=== PATIENT | female | born 1955 | race Caucasian/White ===

== ENCOUNTER 2018-03-08 12:26 | Inpatient (IN) ==
[2018-03-08] MEDS ORDERED: Mag Hydrox/Al Hydrox/Simeth 30 ML UDC PO PRN (16:05)
[2018-03-08] MEDS ORDERED: tiZANidine 4 MG TABLET PO PRN (16:25)
[2018-03-08] MEDS ORDERED: [UNRECOGNIZED DRUG - REMARK] PO PRN (16:34)
[2018-03-08] MEDS ORDERED: Patient Taking Own Medication 1 EACH PO PRN (16:37)
[2018-03-08] MEDS: *HR* OxyCODONE Immed Rel 5 MG TABLET PO PRN ×2 (17:02→19:54)
[2018-03-08] MEDS: Acetaminophen 325 MG TABLET PO PRN (18:39)
[2018-03-08] MEDS: tiZANidine 4 MG TABLET PO PRN (21:43)
[2018-03-09] MEDS: *HR* OxyCODONE Immed Rel 5 MG TABLET PO PRN ×5 (01:54→20:36)
[2018-03-09] MEDS: Acetaminophen 325 MG TABLET PO PRN ×2 (06:19→23:39)
[2018-03-09 06:58] LABS: Basophils % 0.2 %; Eosinophils # 0.5 K/mcL (0.0-0.6); Eosinophils % 4.2 %; Hematocrit 32.7 % (35.3-44.9); Immature Granulocytes % 0.3 % (0-4); Lymphocytes # 2.2 K/mcL (0.6-4.6); Lymphocytes % 17.9 %; Mean Corpuscular HGB Conc 33.6 g/dL (31.6-35.5); Mean Corpuscular Hemoglobin 31.3 pg (28.0-33.3); Mean Corpuscular Volume 92.9 fL (83.0-100.0); Mean Platelet Volume 10.3 fL (9.4-12.4); Monocytes % 8.4 %; Platelet Count 251 K/mcL (140-400); Red Blood Count 3.52 M/mcL (3.82-4.97); Red Cell Distribution Width 13.9 % (11.5-14.5)
[2018-03-09 06:59] LABS: INR 1.2; Prothrombin Time 13.7 Seconds (9.4-12.1)
[2018-03-09 07:02] LABS: Activated Partial Thrombo Time 28.4 Seconds (26.0-36.0)
[2018-03-09 07:03] LABS: Neutrophils # 8.4 K/mcL (1.6-8.9)
[2018-03-09 07:11] LABS: BUN/Creatinine Ratio 11 (6-26); Blood Urea Nitrogen 12 mg/dL (8-23); Carbon Dioxide 28 mEq/L (23-29); Chloride 99 mEq/L (98-107); Glucose 103 mg/dL (70-105); Osmolality,Calculated 278 (280-300); Potassium 3.9 mEq/L (3.5-5.1); Sodium 134 mEq/L (136-145); eGFR For Non-African Americans 53 (> 60)
[2018-03-09] MEDS ORDERED: hydroCHLOROthiazide 25 MG TABLET PO SCH ×2 (09:00→21:00)
[2018-03-09] MEDS ORDERED: Valsartan 80 MG TABLET PO SCH (09:00)
[2018-03-09] MEDS: Multivit/Ca/Min/Fe/FA 1 TAB TABLET PO SCH (09:06)
[2018-03-09] MEDS: Cholecalciferol (D-3) 1,000 UNIT TABLET PO SCH (09:06)
[2018-03-09] MEDS: Ascorbic Acid 500 MG TABLET PO SCH (09:06)
[2018-03-09] MEDS: Aspirin 81 MG TAB.CHEW PO SCH (09:06)
[2018-03-09] MEDS: LUTEIN PO SCH (09:09)
[2018-03-09] MEDS: KRILL OIL 500 MG PO SCH (09:09)
--- NOTE | 2018-03-09 10:44 | Internal Med History&Physical ---
Date of Encounter: 03/09/18 Time of Encounter: 10:41 Assessment and Plan (1) S/P total knee replacement Current visit: Yes Status: Acute Patient is a new admission from [facility] where she had a total knee replacement on 02/03/2018. Recovery was uneventful. Patient is here for rehabilitation due to deconditioning. Patient is well-controlled to right knee. Right knee surgical incision appears healthy, although knee appears somewhat swollen. Continuous icing and use. We will continue with current plan of care. Patient continues physical therapy which she states is progressing well. Qualifiers: Laterality: right Qualified Code(s): Z96.651 - Presence of right artificial knee joint (2) HTN (hypertension) Current visit: Yes Status: Chronic Vital signs are stable. We will continue with current medications. Patient had had a complain of dizziness after fluid to a standing position this morning , which subsided fairly quickly. Patient denied any palpitations or chest discomforts. Orthostatic vital signs were obtained which were negative. Qualifiers: Hypertension type: essential hypertension Qualified Code(s): I10 - Essential (primary) hypertension (3) Dizziness Current visit: Yes Status: Acute Patient experienced dizziness when repositioning to a standing position this morning. Patient states that her symptoms subsided after a few's. Denied any palpitations or chest discomforts. Denied any other syncopal type symptoms. Orthostatic vital signs were obtained which were negative. Labs were reviewed which showed no acute issues. We will continue to monitor. We will review patient's current hypertension meds (4) GERD (gastroesophageal reflux disease) Current visit: Yes Status: Chronic No acute issues. Patient denies any reflux. We will continue with current medications. Qualifiers: Esophagitis presence: without esophagitis Qualified Code(s): K21.9 - Gastro -esophageal reflux disease without esophagitis Internal Medicine - H&P: HPI Chief complaint: right total knee replacement Admitted From: Hospital to Hospital Transfer Plans for Post Hospital Care: Home History of present illness: Ms. Osorio is a 62 year old female who had a right total knee replacement performed at a [facility]. Patient's surgical recovery at Hospital was uneventful and patient was transferred to this facility for further rehabilitation due to deconditioning secondary to her right total knee replacement. Patient also has a history of CVA, left hip fracture with ORIF, migraines, hypertension, vertebral artery coiling, and urinary incontinence. Patient currently states that her right knee pain has been tolerable with current medications. Patient has been using continuous icing machine to the right knee which appears slightly swollen with a midline surgical incision that appears healthy and intact. Minimal amount of ecchymosis noted surrounding the incision and no drainage noted to dressing. Patient denies any other discomforts or shortness of breath. Patient states that she is already began physical therapy and that is progressing well. Patient complaint of slight dizziness when standing from a lying position this morning. Orthostatic vital signs were obtained which were negative. Patient denied any palpitations or syncopal symptoms. Patient also states that she has had several occasions during which she feels that she has a fever, but these occasions tend last only for several minutes. Patient states she becomes slightly diaphoretic during these episodes and has chills. Denies any other symptoms such as dysuria or productive cough. WBC has been normal. Past Med Surg Social Fam HX - Past Medical History Medical history: arthritis, CVA, GERD, hypertension, migraine, other Additional medical history: cerebal sugery with CVA 2004 - Past Surgical History Surgical History: cholecystectomy, knee replacement Additional surgical history: hip surgery [facility] - Social History Smoking Status: Never smoker Smokeless Tobacco Status: No Alcohol use: none Drug use: none Internal Medicine - H&P: Meds Amitriptyline 12/05/16 [History] Azithromycin [Azithromycin 6-Tab Pack] 250 mg PO PER PKG DI #6 tab 12/05/16 [Rx] Diovan 12/05/16 [History] GuaiFENesin/Codeine [Robitussin w/Codeine] 5 ml PO Q6HR PRN #120 liquid [Rx] Loratadine [Allergy Relief] 10 mg PO DAILY #30 tablet 12/05/16 [Rx] Plavix 12/05/16 [History] Wellbutrin 12/05/16 [History] Zomig 12/05/16 [History] Nitrofurantoin Monohyd/M-Cryst [Macrobid 100 mg Capsule] 100 mg PO BID #14 capsule 12/10/16 [Rx] Phenazopyridine HCl [Pyridium] 200 mg PO TID #6 tab 12/10/16 [Rx] 3 Allergy/AdvReac Type Severity Reaction Status Date / Time lisinopril Allergy Cough Verified 03/08/18 17:04 prednisone AdvReac Hypertensio Verified 06/24/16 09:44 n All Systems PM: A 10-system review of systems was performed and is negative for pertinent findings except as documented above in the HPI. - Constitutional Constitutional: as per HPI, no chills, no fever(s), no night sweats - EENT Eyes: no change in vision, no discharge, no pain, no photophobia Ears: no ear discharge, no ear pain, no tinnitus Nose, mouth and throat: no dysphagia, no nasal discharge, no neck pain, no sore throat - Cardiovascular Cardiovascular ROS IM: as per HPI, no chest pain, no diaphoresis, no dyspnea, no lightheadedness, no palpitations, no syncope - Respiratory Respiratory: as per HPI, no cough, no dyspnea, no wheezing, no excessive phlegm production - Gastrointestinal Gastrointestinal: no abdominal pain, no diarrhea, no hematemesis, no hematochezia, no melena, no nausea, no vomiting - Genitourinary Genitourinary: no change in urinary stream, no dysuria, no flank pain, no hematuria - Musculoskeletal Musculoskeletal ROS IM: as per HPI, no numbness, no tingling - Integumentary Integumentary IM: no rash, no unusual bruising - Neurological Neurological ROS: no confusion, no convulsions, no focal weakness, no numbness, no tingling, no tremor(s) - Hematologic/Lymphatic Hematologic/Lymphatic: no easy bruising - Constitutional Vitals: Temp Pulse Resp BP Pulse Ox 100.7 F H 84 16 108/69 95 03/09/18 06:10 03/09/18 06:10 03/09/18 06:10 03/09/18 09:07 03/09/18 06:10 General appearance: Present: A&O X 3, pleasant - Head Head exam: Present: atraumatic, normocephalic - Eye Eye exam: Present: PERRL, conjuntiva pink, sclera anicteric Pupils: Present: PERRL - Neck Neck exam general surgery: Present: supple, trachea midline. Absent: lymphadenopathy - Respiratory Respiratory exam: Present: CTAB. Absent: accessory muscle use, rales, rhonchi, wheezes - Cardiovascular Cardiovascular exam: Present: RRR, +S1, +S2. Absent: diastolic murmur, gallop, rubs, systolic murmur - GI/Abdominal GI/Abdominal exam: Present: normal bowel sounds, soft, no peritoneal signs. Absent: distended, tenderness - Extremities Exam Extremities exam: Present: warm, radial pulses palpable and symmetrical. Absent : calf tenderness, cyanotic, pedal edema Additional comments: Right knee appears somewhat swollen with a midline surgical incision that appears dry and intact. Minimal amount of ecchymosis noted. No drainage noted. Continues icing the knees. - Neurological Exam Neurological exam: Present: CN II-XII intact, oriented X3, no focal deficits. Absent: pronater drift, facial droop, speech deficit - Skin Skin exam: Present: dry, intact Internal Med - H&P Results - Labs CBC & Chem 7: 03/09/18 06:10 03/09/18 06:10 Labs: Short CBC 03/09/18 Range/Units 06:10 WBC 12.1 H (4.3-11.1) K/mcL Hgb 11.0 L (11.5-15.4) g/dL Hct 32.7 L (35.3-44.9) % Plt Count 251 (140-400) K/mcL Neutrophils # 8.4 (1.6-8.9) K/mcL BMP 03/09/18 06:10 Sodium 134 L Potassium 3.9 Chloride 99 Carbon Dioxide 28 BUN 12 Creatinine 1.06 Glucose 103 Calcium 9.0 - VTE Documentation of Mechanical Device: Graduated compression elastic hosiery
[2018-03-09] MEDS: *HR* Enoxaparin 40 MG/0.4 ML SYRINGE SQ SCH (15:34)
[2018-03-09] MEDS: Valsartan 80 MG TABLET PO SCH (22:50)
[2018-03-10] MEDS: *HR* OxyCODONE Immed Rel 5 MG TABLET PO PRN ×5 (05:24→22:08)
[2018-03-10 06:29] LABS: INR 1.1; Prothrombin Time 12.8 Seconds (9.4-12.1)
[2018-03-10 06:30] LABS: Basophils % 0.2 %; Eosinophils # 0.6 K/mcL (0.0-0.6); Eosinophils % 5.3 %; Hematocrit 31.6 % (35.3-44.9); Hemoglobin 10.5 g/dL (11.5-15.4); Immature Granulocytes % 0.6 % (0-4); Lymphocytes # 2.7 K/mcL (0.6-4.6); Lymphocytes % 25.3 %; Mean Corpuscular HGB Conc 33.2 g/dL (31.6-35.5); Mean Corpuscular Hemoglobin 30.9 pg (28.0-33.3); Mean Corpuscular Volume 92.9 fL (83.0-100.0); Mean Platelet Volume 10.1 fL (9.4-12.4); Monocytes # 0.9 K/mcL (0.0-1.3); Neutrophils # 6.5 K/mcL (1.6-8.9); Platelet Count 286 K/mcL (140-400); Red Cell Distribution Width 13.8 % (11.5-14.5); Segmented Neutrophils % 60.6 %
[2018-03-10] MEDS: Ascorbic Acid 500 MG TABLET PO SCH (09:39)
[2018-03-10] MEDS: Cholecalciferol (D-3) 1,000 UNIT TABLET PO SCH (09:39)
[2018-03-10] MEDS: Multivit/Ca/Min/Fe/FA 1 TAB TABLET PO SCH (09:39)
[2018-03-10] MEDS: Aspirin 81 MG TAB.CHEW PO SCH (09:39)
[2018-03-10] MEDS: LUTEIN PO SCH (09:40)
[2018-03-10] MEDS: Valsartan 80 MG TABLET PO SCH (09:40)
[2018-03-10] MEDS: *HR* Enoxaparin 40 MG/0.4 ML SYRINGE SQ SCH (09:40)
[2018-03-10] MEDS: KRILL OIL 500 MG PO SCH (09:40)
--- NOTE | 2018-03-10 14:37 | Internal Med Progress Note ---
Date of Encounter: 03/10/18 Time of Encounter: 10:45 - Assessment and plan (1) S/P total knee replacement Current Visit: Yes Status: Acute Assessment and plan: Patient looks good, postop. We discussed the use of iron and aspirin for a a while postop. We will follow her hemoglobin and use fractionated heparin for DVT prophylaxis. No signs of cellulitis, joint infection, etc. Nursing approached me this afternoon and was concerned about her drainage so will follow. Qualifiers: Laterality: right Qualified Code(s): Z96.651 - Presence of right artificial knee joint (2) HTN (hypertension) Current Visit: Yes Status: Chronic Assessment and plan: We will follow. She has been hypotensive and I am not sure why there is been confusion about her home medications. Patient states that she uses Diovan 80 mg daily, only, for her blood pressure at home. She will be on this and will follow blood pressure. Qualifiers: Hypertension type: essential hypertension Qualified Code(s): I10 - Essential (primary) hypertension (3) GERD (gastroesophageal reflux disease) Current Visit: Yes Status: Chronic Assessment and plan: She is clinically stable without symptoms. Qualifiers: Esophagitis presence: without esophagitis Qualified Code(s): K21.9 - Gastro -esophageal reflux disease without esophagitis (4) Constipation Current Visit: Yes Status: Acute Assessment and plan: We will encouraged laxative use, as above. Qualifiers: Constipation type: slow transit constipation Qualified Code(s): K59.01 - Slow transit constipation - Subjective Interval history: Patient is feeling much better. She states that she still has not had a bowel movement that she is using prune juice. Again, I encouraged laxative use. Patient has no complaint of chest discomfort, dyspnea, orthopnea, palpitations, nausea or vomiting, constipation or diarrhea, other changes in bowel habits, difficulty with urination, rash or itching, or other new complaints, except as mentioned above. Review of systems is otherwise negative. I discussed management of her care with nursing staff. - Constitutional Vitals: Temp Pulse Resp BP Pulse Ox 97.5 F L 76 16 98/63 98 03/10/18 06:48 03/10/18 06:48 03/10/18 06:48 03/10/18 06:48 03/10/18 06:48 General appearance: Present: pleasant Exam: Examination: (Except as mentioned above): General: In no apparent distress. Alert and oriented 3. Nondiaphoretic. Head: Atraumatic and normocephalic. Respiratory: No use of accessory muscles. Lungs are clear throughout. Normal airflow. Cardiovascular: Regular rate and rhythm without murmur appreciated. Abdomen: Bowel sounds are normal. No hepatosplenomegaly mass or tenderness appreciated. Obese and therefore difficult to palpate deeply. Extremities: No cyanosis clubbing or change in edema. Skin: Warm and non-diaphoretic with no new lesions noted. Internal Medicine: Result - Labs CBC & Chem 7: 03/10/18 05:20 03/09/18 06:10 Labs: Short CBC 03/10/18 Range/Units 05:20 WBC 10.7 (4.3-11.1) K/mcL Hgb 10.5 L (11.5-15.4) g/dL Hct 31.6 L (35.3-44.9) % Plt Count 286 (140-400) K/mcL Neutrophils # 6.5 (1.6-8.9) K/mcL - ABG Interpretation ABG results: PT/INR, D-dimer PT 12.8 Seconds (9.4-12.1) H 03/10/18 05:20 - VTE Documentation of Mechanical Device: Graduated compression elastic hosiery Consult Discharge Plan - Plan Referrals: Rodolfo Garcia MD [Primary Care Provider] -
[2018-03-10] MEDS: tiZANidine 4 MG TABLET PO PRN (20:34)
[2018-03-10] MEDS: Acetaminophen 325 MG TABLET PO PRN (20:34)
[2018-03-11] MEDS: *HR* OxyCODONE Immed Rel 5 MG TABLET PO PRN ×5 (04:53→21:57)
[2018-03-11] MEDS: Aspirin 81 MG TAB.CHEW PO SCH (09:14)
[2018-03-11] MEDS: Cholecalciferol (D-3) 1,000 UNIT TABLET PO SCH (09:15)
[2018-03-11] MEDS: LUTEIN PO SCH (09:15)
[2018-03-11] MEDS: Ascorbic Acid 500 MG TABLET PO SCH (09:15)
[2018-03-11] MEDS: Multivit/Ca/Min/Fe/FA 1 TAB TABLET PO SCH (09:15)
[2018-03-11] MEDS: Valsartan 80 MG TABLET PO SCH (09:15)
[2018-03-11] MEDS: *HR* Enoxaparin 40 MG/0.4 ML SYRINGE SQ SCH (09:15)
[2018-03-11] MEDS: KRILL OIL 500 MG PO SCH (10:08)
[2018-03-11] MEDS: Acetaminophen 325 MG TABLET PO PRN ×3 (11:14→19:36)
--- NOTE | 2018-03-11 13:00 | Internal Med Progress Note ---
Date of Encounter: 03/11/18 Time of Encounter: 12:58 - Assessment and plan (1) S/P total knee replacement Current Visit: Yes Status: Acute Assessment and plan: Right knee remains wtih moderate swelling and mod drainage noted lower portion of surgical wound but otherwise appears healthy and intact at the incision. No erythema noted. Patient continues use of CPM machine and continuous icing. Patient observed ambulating in hallway with walker. Pain has been managed well with current oral medications. We will continue with physical therapy and current plan of care. Qualifiers: Laterality: right Qualified Code(s): Z96.651 - Presence of right artificial knee joint (2) HTN (hypertension) Current Visit: Yes Status: Chronic Assessment and plan: Vital signs stable. We will continue with current medications. Qualifiers: Hypertension type: essential hypertension Qualified Code(s): I10 - Essential (primary) hypertension (3) GERD (gastroesophageal reflux disease) Current Visit: Yes Status: Chronic Assessment and plan: No acute issues. No reported recent reflux. We will continue with current medications Qualifiers: Esophagitis presence: without esophagitis Qualified Code(s): K21.9 - Gastro -esophageal reflux disease without esophagitis - Time Spent With Patient less than 15 minutes - Subjective Interval history: Patient appears relaxed and currently denies any discomforts shortness of breath. Patient states that her pain has been tolerable with current pain medications and that her right knee has improved since starting a CPM machine 2 days ago. She reports that patient has had minimal amount of serosanguineous type drainage from the distal portion of the knee surgical incision, but otherwise incision appears healthy. Patient states that therapy is going well - Constitutional Vitals: Temp Pulse Resp BP Pulse Ox 97.8 F 78 16 104/52 93 03/11/18 06:42 03/11/18 06:42 03/11/18 06:42 03/11/18 06:42 03/11/18 06:42 General appearance: Present: A&O X 3, pleasant - Head Head exam: Present: atraumatic, normocephalic - Eye Eye exam: Present: PERRL, conjuntiva pink, sclera anicteric Pupils: Present: PERRL - Neck Neck exam general surgery: Present: supple, trachea midline. Absent: lymphadenopathy - Respiratory Respiratory exam: Present: CTAB. Absent: accessory muscle use, rales, rhonchi, wheezes - Cardiovascular Cardiovascular exam: Present: RRR, +S1, +S2. Absent: diastolic murmur, gallop, rubs, systolic murmur - GI/Abdominal GI/Abdominal exam: Present: normal bowel sounds, soft, no peritoneal signs. Absent: distended, tenderness - Extremities Exam Extremities exam: Present: warm, radial pulses palpable and symmetrical. Absent : calf tenderness, cyanotic, pedal edema Additional comments: Patient continues to have moderate edema to right knee with midline surgical incision currently appearing intact with and healthy. Noted minimal amount of shadowing at lower portion of dressing. No erythema or ecchymosis noted - Neurological Exam Neurological exam: Present: CN II-XII intact, oriented X3, no focal deficits. Absent: pronater drift, facial droop, speech deficit - Skin Skin exam: Present: dry, intact Internal Medicine: Result - Labs CBC & Chem 7: 03/10/18 05:20 03/09/18 06:10 - ABG Interpretation ABG results: PT/INR, D-dimer PT 12.8 Seconds (9.4-12.1) H 03/10/18 05:20 - VTE Documentation of Mechanical Device: Graduated compression elastic hosiery Consult Discharge Plan - Plan Referrals: Rodolfo Garcia MD [Primary Care Provider] -
[2018-03-11] MEDS: tiZANidine 4 MG TABLET PO PRN (19:37)
[2018-03-11] MEDS ORDERED: Ondansetron ODT 4 MG TAB.RAPDIS SL PRN (21:05)
[2018-03-12] MEDS: Acetaminophen 325 MG TABLET PO PRN ×5 (00:17→23:09)
[2018-03-12] MEDS: *HR* OxyCODONE Immed Rel 5 MG TABLET PO PRN ×5 (02:46→20:14)
[2018-03-12 05:50] LABS: Hematocrit 29.6 % (35.3-44.9); Hemoglobin 9.7 g/dL (11.5-15.4); Immature Granulocytes % 0.7 % (0-4); Lymphocytes % 32.3 %; Mean Corpuscular HGB Conc 32.8 g/dL (31.6-35.5); Mean Corpuscular Hemoglobin 30.8 pg (28.0-33.3); Mean Platelet Volume 9.2 fL (9.4-12.4); Monocytes % 9.1 %; Platelet Count 291 K/mcL (140-400); Red Blood Count 3.15 M/mcL (3.82-4.97); Segmented Neutrophils % 48.8 %
[2018-03-12 05:51] LABS: Basophils % 0.3 %; Eosinophils # 0.7 K/mcL (0.0-0.6); Eosinophils % 8.8 %; Lymphocytes # 2.4 K/mcL (0.6-4.6); Monocytes # 0.7 K/mcL (0.0-1.3); Neutrophils # 3.7 K/mcL (1.6-8.9); Nucleated Red Blood Cells 0.3 /100 WBC (0)
[2018-03-12 06:09] LABS: BUN/Creatinine Ratio 16 (6-26); Blood Urea Nitrogen 14 mg/dL (8-23); Calcium 8.9 mg/dL (8.6-10.3); Carbon Dioxide 30 mEq/L (23-29); Chloride 106 mEq/L (98-107); Glucose 105 mg/dL (70-105); Osmolality,Calculated 293 (280-300); Potassium 4.5 mEq/L (3.5-5.1); Sodium 141 mEq/L (136-145); eGFR For Non-African Americans > 60 (> 60)
[2018-03-12] MEDS: LUTEIN PO SCH (09:16)
[2018-03-12] MEDS: KRILL OIL 500 MG PO SCH (09:16)
[2018-03-12] MEDS: Ascorbic Acid 500 MG TABLET PO SCH (09:19)
[2018-03-12] MEDS: Aspirin 81 MG TAB.CHEW PO SCH (09:19)
[2018-03-12] MEDS: Multivit/Ca/Min/Fe/FA 1 TAB TABLET PO SCH (09:19)
[2018-03-12] MEDS: *HR* Enoxaparin 40 MG/0.4 ML SYRINGE SQ SCH (09:20)
[2018-03-12] MEDS: Cholecalciferol (D-3) 1,000 UNIT TABLET PO SCH (09:20)
[2018-03-12] MEDS: Valsartan 80 MG TABLET PO SCH (09:20)
--- NOTE | 2018-03-12 11:50 | Internal Med Progress Note ---
Date of Encounter: 03/12/18 Time of Encounter: 11:48 - Assessment and plan (1) S/P total knee replacement Current Visit: Yes Status: Acute Assessment and plan: Right knee remains wtih moderate swelling and minimal drainage noted lower portion of surgical wound but otherwise appears healthy and intact at the incision. No erythema noted. Patient continues use of CPM machine and continuous icing. Pain has been managed well with current oral medications. We will continue with physical therapy and current plan of care. Qualifiers: Laterality: right Qualified Code(s): Z96.651 - Presence of right artificial knee joint (2) HTN (hypertension) Current Visit: Yes Status: Chronic Assessment and plan: Vital signs stable. We will continue with current medications. Qualifiers: Hypertension type: essential hypertension Qualified Code(s): I10 - Essential (primary) hypertension (3) GERD (gastroesophageal reflux disease) Current Visit: Yes Status: Chronic Assessment and plan: No acute issues. No reported recent reflux. We will continue with current medications Qualifiers: Esophagitis presence: without esophagitis Qualified Code(s): K21.9 - Gastro -esophageal reflux disease without esophagitis - Time Spent With Patient less than 15 minutes - Subjective Interval history: Patient appears relaxed and currently denies any discomforts shortness of breath. Patient states that her pain has been tolerable with current pain medications and that her right knee has improved since starting a CPM machine. She continues with minimal amount of serosanguineous type drainage from the distal portion of the knee surgical incision, but otherwise incision appears healthy. Patient states that therapy is going well - Constitutional Vitals: Temp Pulse Resp BP Pulse Ox 99.1 F 69 16 115/73 96 03/12/18 07:07 03/12/18 07:07 03/12/18 07:07 03/12/18 07:07 03/12/18 07:07 General appearance: Present: A&O X 3, pleasant - Head Head exam: Present: atraumatic, normocephalic - Eye Eye exam: Present: PERRL, conjuntiva pink, sclera anicteric Pupils: Present: PERRL - Neck Neck exam general surgery: Present: supple, trachea midline. Absent: lymphadenopathy - Respiratory Respiratory exam: Present: CTAB. Absent: accessory muscle use, rales, rhonchi, wheezes - Cardiovascular Cardiovascular exam: Present: RRR, +S1, +S2. Absent: diastolic murmur, gallop, rubs, systolic murmur - GI/Abdominal GI/Abdominal exam: Present: normal bowel sounds, soft, no peritoneal signs. Absent: distended, tenderness - Extremities Exam Extremities exam: Present: warm, radial pulses palpable and symmetrical. Absent : calf tenderness, cyanotic, pedal edema Additional comments: Left knee continues with moderate edema and midline surgical incision remains intact and healthy in appearance. No erythema and continued moderate ecchymosis , which appears to be fading. Patient continues to have minimal amount of serous type drainage to the lower portion of her dressing. Continued use of CPM and continuous icing. - Neurological Exam Neurological exam: Present: CN II-XII intact, oriented X3, no focal deficits. Absent: pronater drift, facial droop, speech deficit - Skin Skin exam: Present: dry, intact Internal Medicine: Result - Labs CBC & Chem 7: 03/12/18 05:40 03/12/18 05:40 Labs: Short CBC 03/12/18 Range/Units 05:40 WBC 7.5 (4.3-11.1) K/mcL Hgb 9.7 L (11.5-15.4) g/dL Hct 29.6 L (35.3-44.9) % Plt Count 291 (140-400) K/mcL Neutrophils # 3.7 (1.6-8.9) K/mcL BMP 03/12/18 05:40 Sodium 141 Potassium 4.5 Chloride 106 Carbon Dioxide 30 H BUN 14 Creatinine 0.88 Glucose 105 Calcium 8.9 - ABG Interpretation ABG results: PT/INR, D-dimer PT 12.8 Seconds (9.4-12.1) H 03/10/18 05:20 - VTE Documentation of Mechanical Device: Graduated compression elastic hosiery Consult Discharge Plan - Plan Referrals: Rodolfo Garcia MD [Primary Care Provider] -
[2018-03-12] MEDS: tiZANidine 4 MG TABLET PO PRN (17:59)
[2018-03-13] MEDS: *HR* OxyCODONE Immed Rel 5 MG TABLET PO PRN ×4 (00:25→17:14)
[2018-03-13] MEDS: Acetaminophen 325 MG TABLET PO PRN ×4 (03:30→19:19)
[2018-03-13] MEDS: Multivit/Ca/Min/Fe/FA 1 TAB TABLET PO SCH (07:45)
[2018-03-13] MEDS: Ascorbic Acid 500 MG TABLET PO SCH (07:45)
[2018-03-13] MEDS: Valsartan 80 MG TABLET PO SCH (07:45)
[2018-03-13] MEDS: Aspirin 81 MG TAB.CHEW PO SCH (07:45)
[2018-03-13] MEDS: *HR* Enoxaparin 40 MG/0.4 ML SYRINGE SQ SCH (07:45)
[2018-03-13] MEDS: KRILL OIL 500 MG PO SCH (07:47)
[2018-03-13] MEDS: Cholecalciferol (D-3) 1,000 UNIT TABLET PO SCH (07:47)
[2018-03-13] MEDS: LUTEIN PO SCH (07:47)
--- NOTE | 2018-03-13 10:11 | Internal Med Progress Note ---
Date of Encounter: 03/13/18 Time of Encounter: 10:09 - Assessment and plan (1) S/P total knee replacement Current Visit: Yes Status: Acute Assessment and plan: improving. continue PT and OT. will follow progress. continue current pain regimen. f/u with ortho as scheduled. last hgb 9.7, asymptomatic. Qualifiers: Laterality: right Qualified Code(s): Z96.651 - Presence of right artificial knee joint (2) HTN (hypertension) Current Visit: Yes Status: Chronic Qualifiers: Hypertension type: essential hypertension Qualified Code(s): I10 - Essential (primary) hypertension (3) GERD (gastroesophageal reflux disease) Current Visit: Yes Status: Chronic Qualifiers: Esophagitis presence: without esophagitis Qualified Code(s): K21.9 - Gastro -esophageal reflux disease without esophagitis - Time Spent With Patient less than 15 minutes - Subjective Interval history: participating well with therapy. states pain is controlled but the swelling in right knee is causing her issues in not being able to bend as much as she would like. bowels moving as normal. maintaining appetite and hydration. denies fever, chills, NVD. - Constitutional Vitals: Temp Pulse Resp BP Pulse Ox 99.0 F 70 16 135/80 97 03/13/18 07:10 03/13/18 07:10 03/13/18 07:10 03/13/18 07:10 03/13/18 07:10 General appearance: Present: A&O X 3, pleasant - Head Head exam: Present: atraumatic, normocephalic - Eye Eye exam: Present: PERRL, conjuntiva pink, sclera anicteric Pupils: Present: PERRL - Neck Neck exam general surgery: Present: supple, trachea midline. Absent: lymphadenopathy - Respiratory Respiratory exam: Present: CTAB. Absent: accessory muscle use, rales, rhonchi, wheezes - Cardiovascular Cardiovascular exam: Present: RRR, +S1, +S2. Absent: diastolic murmur, gallop, rubs, systolic murmur - GI/Abdominal GI/Abdominal exam: Present: normal bowel sounds, soft, no peritoneal signs. Absent: distended, tenderness - Extremities Exam Extremities exam: Present: warm, radial pulses palpable and symmetrical. Absent : calf tenderness, cyanotic, pedal edema - Incison Comments: right knee incision, drsg dry and intact with surrounding edema. - Neurological Exam Neurological exam: Present: CN II-XII intact, oriented X3, no focal deficits. Absent: pronater drift, facial droop, speech deficit - Skin Skin exam: Present: dry, intact Internal Medicine: Result - Labs CBC & Chem 7: 03/12/18 05:40 03/12/18 05:40 - ABG Interpretation ABG results: PT/INR, D-dimer PT 12.8 Seconds (9.4-12.1) H 03/10/18 05:20 - VTE Documentation of Mechanical Device: Graduated compression elastic hosiery Consult Discharge Plan - Plan Referrals: Rodolfo Garcia MD [Primary Care Provider] -
[2018-03-13] MEDS: tiZANidine 4 MG TABLET PO PRN (22:14)
[2018-03-14] MEDS: *HR* OxyCODONE Immed Rel 5 MG TABLET PO PRN ×5 (01:12→19:36)
[2018-03-14] MEDS: Acetaminophen 325 MG TABLET PO PRN ×3 (02:56→22:04)
[2018-03-14] MEDS: Aspirin 81 MG TAB.CHEW PO SCH (08:29)
[2018-03-14] MEDS: Valsartan 80 MG TABLET PO SCH (08:29)
[2018-03-14] MEDS: Ascorbic Acid 500 MG TABLET PO SCH (08:29)
[2018-03-14] MEDS: *HR* Enoxaparin 40 MG/0.4 ML SYRINGE SQ SCH (08:29)
[2018-03-14] MEDS: Multivit/Ca/Min/Fe/FA 1 TAB TABLET PO SCH (08:29)
[2018-03-14] MEDS: Cholecalciferol (D-3) 1,000 UNIT TABLET PO SCH (08:29)
[2018-03-14] MEDS: LUTEIN PO SCH (08:30)
[2018-03-14] MEDS: KRILL OIL 500 MG PO SCH (08:30)
--- NOTE | 2018-03-14 10:41 | Internal Med Progress Note ---
Date of Encounter: 03/14/18 Time of Encounter: 10:39 - Assessment and plan (1) S/P total knee replacement Current Visit: Yes Status: Acute Assessment and plan: improving. continue PT and OT. will follow progress. continue current pain regimen. f/u with ortho as scheduled. last hgb 9.7, asymptomatic. Qualifiers: Laterality: right Qualified Code(s): Z96.651 - Presence of right artificial knee joint (2) HTN (hypertension) Current Visit: Yes Status: Chronic Assessment and plan: Controlled with current medication. Monitor blood pressure. Qualifiers: Hypertension type: essential hypertension Qualified Code(s): I10 - Essential (primary) hypertension (3) GERD (gastroesophageal reflux disease) Current Visit: Yes Status: Chronic Assessment and plan: Controlled with current medication. Qualifiers: Esophagitis presence: without esophagitis Qualified Code(s): K21.9 - Gastro -esophageal reflux disease without esophagitis - Time Spent With Patient less than 15 minutes - Subjective Interval history: participating well with therapy. ambulating with walker. states pain is controlled but the swelling in right knee is causing her issues in not being able to bend as much as she would like. bowels moving as normal. maintaining appetite and hydration. denies fever, chills, NVD. - Constitutional Vitals: Temp Pulse Resp BP Pulse Ox 98.5 F 68 17 121/66 97 03/14/18 07:15 03/14/18 07:15 03/14/18 07:15 03/14/18 07:15 03/14/18 07:15 General appearance: Present: cooperative, A&O X 3, pleasant, no acute distress, answers questions appropriately - Head Head exam: Present: atraumatic, normocephalic - Eye Eye exam: Present: PERRL, conjuntiva pink, sclera anicteric Pupils: Present: PERRL - Neck Neck exam general surgery: Present: supple, trachea midline. Absent: lymphadenopathy - Respiratory Respiratory exam: Present: CTAB. Absent: accessory muscle use, rales, rhonchi, wheezes - Cardiovascular Cardiovascular exam: Present: RRR, +S1, +S2. Absent: diastolic murmur, gallop, rubs, systolic murmur - GI/Abdominal GI/Abdominal exam: Present: normal bowel sounds, soft, no peritoneal signs. Absent: distended, tenderness - Extremities Exam Extremities exam: Present: warm, radial pulses palpable and symmetrical. Absent : calf tenderness, cyanotic, pedal edema - Incison Comments: Right knee incision dressing dry and intact. Surrounding edema. - Neurological Exam Neurological exam: Present: CN II-XII intact, oriented X3, no focal deficits. Absent: pronater drift, facial droop, speech deficit - Skin Skin exam: Present: dry, intact Internal Medicine: Result - Labs CBC & Chem 7: 03/12/18 05:40 03/12/18 05:40 - ABG Interpretation ABG results: PT/INR, D-dimer PT 12.8 Seconds (9.4-12.1) H 03/10/18 05:20 - VTE Documentation of Mechanical Device: Graduated compression elastic hosiery Consult Discharge Plan - Plan Referrals: Herb Correia DO [Non-Partnered Physician] - 03/19/18 11:30 am Rodolfo Garcia MD [Primary Care Provider] -
[2018-03-14] MEDS: tiZANidine 4 MG TABLET PO PRN (22:04)
[2018-03-15] MEDS: *HR* OxyCODONE Immed Rel 5 MG TABLET PO PRN ×4 (00:12→13:57)
[2018-03-15 07:20] VITALS: BP 122/82
[2018-03-15] MEDS: Valsartan 80 MG TABLET PO SCH (09:06)
[2018-03-15] MEDS: Aspirin 81 MG TAB.CHEW PO SCH (09:06)
[2018-03-15] MEDS: Multivit/Ca/Min/Fe/FA 1 TAB TABLET PO SCH (09:06)
[2018-03-15] MEDS: Ascorbic Acid 500 MG TABLET PO SCH (09:06)
[2018-03-15] MEDS: *HR* Enoxaparin 40 MG/0.4 ML SYRINGE SQ SCH (09:06)
[2018-03-15] MEDS: Cholecalciferol (D-3) 1,000 UNIT TABLET PO SCH (09:06)
[2018-03-15] MEDS: KRILL OIL 500 MG PO SCH (09:07)
[2018-03-15] MEDS: LUTEIN PO SCH (09:07)
--- NOTE | 2018-03-15 09:46 | Discharge Summary ---
Orders not resulted at time of discharge: Pending orders 03/19/18 04:00 Basic Metabolic Panel MO Complete Blood Count [HEME] MO 03/26/18 04:00 Basic Metabolic Panel MO Complete Blood Count [HEME] MO 04/02/18 04:00 Basic Metabolic Panel MO Complete Blood Count [HEME] MO 04/09/18 04:00 Basic Metabolic Panel MO Complete Blood Count [HEME] MO 04/16/18 04:00 Basic Metabolic Panel MO Complete Blood Count [HEME] MO 04/23/18 04:00 Basic Metabolic Panel MO Complete Blood Count [HEME] MO 04/30/18 04:00 Basic Metabolic Panel MO Complete Blood Count [HEME] MO Date of Encounter: 03/15/18 Time of Encounter: 09:43 - Discharge Diagnosis (1) S/P total knee replacement Priority: Primary Status: Acute Comments: Healing. Continue PT and OT outpatient. Follow up with ortho as scheduled. Qualifiers: Laterality: right Qualified Code(s): Z96.651 - Presence of right artificial knee joint (2) HTN (hypertension) Priority: Primary Status: Chronic Comments: controlled with current meds. monitor BP Qualifiers: Hypertension type: essential hypertension Qualified Code(s): I10 - Essential (primary) hypertension (3) GERD (gastroesophageal reflux disease) Priority: Secondary Status: Chronic Comments: controlled with current meds. f/u with PCP. Qualifiers: Esophagitis presence: without esophagitis Qualified Code(s): K21.9 - Gastro -esophageal reflux disease without esophagitis Hospital course: Ms. Osorio is a 62 year old female discharging to home status post right total knee replacement. Completed therapy goals. Patient ambulating with Walker out household distances mod independent. Will be home with . Follow up with ortho as scheduled. Will continue outpatient physical therapy. Discharge discussed with: patient, nurse, social work - Time Spent with Patient Total time spent providing and/or coordinating discharge services: Less than 30 minutes - Discharge Medications Home Medications: Amitriptyline 12/05/16 [History] Diovan 12/05/16 [History] Loratadine [Allergy Relief] 10 mg PO DAILY #30 tablet 12/05/16 [Rx] Plavix 12/05/16 [History] Wellbutrin 12/05/16 [History] Zomig 12/05/16 [History] Acetaminophen [Tylenol] 650 mg PO Q4HR PRN tablet 03/15/18 [Rx] Ascorbic Acid [Vitamin C] 500 mg PO DAILY tablet 03/15/18 [Rx] Aspirin 81 mg PO DAILY tab.chew 03/15/18 [Rx] Cholecalciferol (D-3) [Vitamin D] 1,000 unit PO DAILY tablet 03/15/18 [Rx] Clopidogrel [Plavix] 75 mg PO DAILY tablet 03/15/18 [Rx] Multivit/Ca/Min/Fe/FA [Thera M Plus] 1 tab PO DAILY tablet 03/15/18 [Rx] OxyCODONE Immed Rel [Roxicodone 5 MG] 5 mg PO Q6HR PRN 7 Days #28 tablet [Rx] Polyethylene Glycol 3350 [MiraLAX] 17 gm PO DAILY PRN powd.pack 03/15/18 [Rx] Valsartan [Diovan] 80 mg PO DAILY tablet 03/15/18 [Rx] Allergies/Adverse Reactions: 3 Allergy/AdvReac Type Severity Reaction Status Date / Time lisinopril Allergy Cough Verified 03/08/18 17:04 prednisone AdvReac Hypertensio Verified 06/24/16 09:44 n Date of admission: 03/08/18 15:31 Primary care physician: Rodolfo Garcia MD Consults: 03/08/18 16:01 Consult to Occupational Therapy [CONS] Routine Comment: Evaluate, develop and implement POC Reason for Consult: Right TKR Does patient have active BEDREST order?: No Is patient medically & hemodynamically stable?: Yes Consult to Physical Therapy [CONS] Routine Comment: Evaluate, develop and implement POC Reason for Consult: Right TKR Does patient have active BEDREST order?: No Is patient medically & hemodynamically stable?: Yes Consult to Recreational Therapy [CONS] Routine Comment: Evaluate, develop and implement POC Consult to Marriage And Family Therapist [CONS] Routine Reason for SW Consult: Right TKR 03/09/18 14:56 Consult to Physical Medicine/Rehab [CONS] Routine Reason for Consult: TKR Time Notified: 14:56 Call Completed: No Discharging clinician: Annabel Calabrese Anticipated date of discharge: 03/15/18 - Constitutional Vitals: Temp Pulse Resp BP Pulse Ox 97.9 F 76 18 122/82 97 03/15/18 07:19 03/15/18 07:19 03/15/18 07:19 03/15/18 07:19 03/15/18 07:19 General appearance: Present: cooperative, A&O X 3, pleasant, no acute distress, obese, answers questions appropriately - Head Head exam: Present: atraumatic, normocephalic - Eye Eye exam: Present: PERRL, conjuntiva pink, sclera anicteric Pupils: Present: PERRL - Neck Neck exam general surgery: Present: supple, trachea midline. Absent: lymphadenopathy - Respiratory Respiratory exam: Present: CTAB. Absent: accessory muscle use, rales, rhonchi, wheezes - Cardiovascular Cardiovascular exam: Present: RRR, +S1, +S2. Absent: diastolic murmur, gallop, rubs, systolic murmur - GI/Abdominal GI/Abdominal exam: Present: normal bowel sounds, soft, no peritoneal signs. Absent: distended, tenderness - Extremities Exam Extremities exam: Present: warm, radial pulses palpable and symmetrical. Absent : calf tenderness, cyanotic, pedal edema - Incison Comments: Right knee dressing dry and intact. Surrounding edema. - Neurological Exam Neurological exam: Present: CN II-XII intact, oriented X3, no focal deficits. Absent: pronater drift, facial droop, speech deficit - Skin Skin exam: Present: dry, intact - Patient Status Disposition: Home, Self-Care Condition: Good Functional capacity at discharge: uses cane/walker Overall status at discharge: patient is progressing back to baseline - Discharge Instructions Follow Up With: Herb Correia DO [Non-Partnered Physician] - 03/19/18 11:30 am Rodolfo Garcia MD [Primary Care Provider] - (pt will make at d/c) - Diet and Activity Activity: as per physical therapy Diet: advance to your usual diet - VTE Documentation of Mechanical Device: Graduated compression elastic hosiery
== END 2018-03-15 14:40 | disposition home or self-care (01) | DRG 560 ==
LOC: INPGRE 15:31